=== PATIENT | female | born 1990 | race Caucasian/White ===

== ENCOUNTER → 2017-08-04 | Outpatient (CLI) | payer BC ==
[~2017-08-04] MED LIST: ESCITALOPRAM OX10 MG PO; LOXAPINE5 MG PO; TOPAMAX 25 MG T25 M1 PO; XANAX1 MG PO
== END ==
LOC: ULTRA 08:00
DX: E04.1 Nontoxic single thyroid nodule (principal)

== ENCOUNTER 2017-08-10 13:30 | Emergency (ER) | payer BC ==
[~2017-08-10] VITALS: Ht 170.2 cm; Wt 63.5 kg
--- NOTE | ~2017-08-10 | EKG ---
[address] [place] [place] [address] ELECTROCARDIOGRAM REPORT Name: SHEILA MAN Room #: REG Whit#: [id number] Admission: 08/10/17 Attend Phys: Discharge: Date of : [birth year] Report #: [id number] THIS REPORT FOR: //name// [facility] ED Test Date: 2017-08-10 Test Time: 13:40:52 Pat Name: SHEILA MAN Department: Room: Gender: F Cardiovascular Invasive Specialist: SHANE : 1990 Requested By: Matthew Ho Order Number: [id number] MD: Sukhdeep Tipton Measurements Intervals [place] Rate: 75 P: 98 CA: 150 QRS: 65 QRSD: 113 T: 13 QT: 414 QTc: 463 Interpretive Statements Sinus rhythm Incomplete right bundle branch block Nonspecific T abnormalities, lateral leads No previous ECG available for comparison Electronically Signed On 08-10-2017 16:09:26 [employer] by Sukhdeep Tipton [email or web address] <ELECTRONICALLY SIGNED> By: Sukhdeep Tipton MD, [facility] 08/10/17 1609 1340 1340 Sukhdeep Tipton MD, FACC /EPI
[2017-08-10 14:44] LABS: HEMATOCRIT 39.4 % (37.0-47.0); HEMOGLOBIN 13.3 gm/dL (12.0-15.0); MCH 30.4 pg (26.0-34.0); MCHC 33.6 g/dL (28.0-37.0); MCV 90.3 fL (80.0-100.0); RBC 4.37 mil/uL (4.20-5.00); RDW 12.3 % (10.5-14.5); WBC 3.3 thou/uL (4.0-11.0)
[2017-08-10 14:56] LABS: ANION GAP 9 mmol/L (7-16); BUN 11 mg/dL (7-18); CALCIUM 8.7 mg/dL (8.5-10.1); CHLORIDE 107 mmol/L (98-107); CO2 25 mmol/L (21-32); CREATININE 0.8 mg/dL (0.6-1.0); GLUCOSE 82 mg/dL (74-106); POTASSIUM 3.7 mmol/L (3.5-5.1); SODIUM 141 mmol/L (136-145)
[2017-08-10 15:07] LABS: ALBUMIN 3.9 g/dL (3.4-5.0); SGOT 14 U/L (15-37); SGPT 19 U/L (30-65); TOTAL BILIRUBIN 0.4 mg/dL (<0.1-1.0); TOTAL PROTEIN 6.6 g/dL (6.4-8.2); TROPONIN-I < 0.04 ng/mL (<0.06)
[2017-08-10] MEDS ORDERED: XANAX1 MG PO (15:23)
[2017-08-10] MEDS ORDERED: ESCITALOPRAM OX10 MG PO (15:24)
[2017-08-10] MEDS ORDERED: TOPAMAX 25 MG T25 M1 PO (15:24)
[2017-08-10] MEDS ORDERED: LOXAPINE5 MG PO (15:25)
== END 2017-08-10 16:00 | disposition home or self-care (01) ==
LOC: ER 13:30
PROVIDERS: Emergency Medicine
DX: R42 Dizziness and giddiness (principal); R55 Syncope and collapse; F41.9 Anxiety disorder, unspecified; F32.9 Major depressive disorder, single episode, unspecified; G43.909 Migraine, unspecified, not intractable, without status migrainosus; Z88.0 Allergy status to penicillin; Z88.6 Allergy status to analgesic agent; Z88.1 Allergy status to other antibiotic agents; Z88.8 Allergy status to other drugs, medicaments and biological substances

== ENCOUNTER 2019-10-24 11:05 | Emergency (ER) | payer OTHER ==
[~2019-10-24] VITALS: Ht 170.2 cm; Wt 63.5 kg
[~2019-10-24 11:05] MED LIST changes: +AMPHETAMINE SAL30 MG; +BENTYL 20 MG TA20 M1 PO; +ESCITALOPRAM OX20 MG; +NORCO 5-325 TA1 EACH PO; +PHENERGAN 25 MG25 M1 PO; +RISPERDAL 1 MG T1 MG; +TRAZODONE HCL50 MG; +ZOFRAN ODT4 MG PO
[2019-10-24] MEDS ORDERED: TOPAMAX 100 MG100 MG PO (11:52)
[2019-10-24] MEDS ORDERED: TRAZODONE HCL100 MG PO (11:52)
[2019-10-24] MEDS ORDERED: WELLBUTRIN SR200 MG PO (11:53)
[2019-10-24] MEDS ORDERED: BUSPIRONE HCL15 MG PO (11:53)
[2019-10-24] MEDS ORDERED: BUTALB-APAP-CA1 EACH PO (13:54)
[2019-10-24] MEDS ORDERED: COMPAZINE25 M1 RECTAL (13:54)
[2019-10-24 14:23] VITALS: BP 106/69
== END 2019-10-24 14:23 | disposition home or self-care (01) ==
LOC: ER 11:05
DX: G43.909 Migraine, unspecified, not intractable, without status migrainosus (principal); M43.6 Torticollis; R42 Dizziness and giddiness; R11.10 Vomiting, unspecified; R19.7 Diarrhea, unspecified; Z79.899 Other long term (current) drug therapy; Z88.1 Allergy status to other antibiotic agents; Z88.0 Allergy status to penicillin; Z88.6 Allergy status to analgesic agent; Z88.8 Allergy status to other drugs, medicaments and biological substances; Z90.710 Acquired absence of both cervix and uterus